=== PATIENT | male | born 1980 | race Two or more races ===

== ENCOUNTER 2017-09-16 11:55 | Emergency (ER) | payer SELFPAY ==
[~2017-09-16] VITALS: Ht 167.6 cm; Wt 74.8 kg
[2017-09-16] MEDS ORDERED: ACETAMINOPHEN ES 500 MG TABLET ONE (12:25)
--- NOTE | 2017-09-16 12:28 | NUR ---
PT TO [facility]
[2017-09-16] MEDS ORDERED: ACETAMINOPHEN 325 MG TABLET PO ONE (12:30)
--- NOTE | 2017-09-16 12:46 | NUR ---
PT SEEN & EVAL'D BY RD STOCKTON, PT BACK FROM CT. BB RA C/O neck, nasal,facial, LB pain WITH FACIAL LACS s/p fall from wooden plank approx 6 ft high, NO LOC PER PT. PT AAOX3, ABLE TO MOVE ALL EXT. DENIES DIZZINESS, N/V, CP, SOB, NAD NOTED @ THIS TIME. MEDICATED FOR PAIN & WILL CONT TO MONITOR.
[2017-09-16] MEDS ORDERED: TDAP [DIPH/PERTUSSIS/TET] 0.5 ML VIAL IM ONE ×2 (13:00→13:22)
[2017-09-16] MEDS: CEPHALEXIN MONOHYDRATE 500 MG CAPSULE PO ONE ×2 (13:29→13:33)
[2017-09-16 13:40] VITALS: BP 132/80
--- NOTE | 2017-09-16 13:41 | NUR ---
Patient discharged to home in stable condition. Written and verbal after care instructions given. Patient verbalizes understanding of instruction. PT STABLE DENIES DIZZINESS, GORDON, CP, SOB, N/V NAD NOTED & AMB WITH STEADY GAIT UPON LEAVING ED. PT REFUSED Rx, RD STOCKTON AWARE.
== END 2017-09-16 13:40 ==
LOC: ER 11:58
DX: S01.21XA Laceration without foreign body of nose, initial encounter (principal); M25.561 Pain in right knee; W01.0XXA Fall on same level from slipping, tripping and stumbling without subsequent striking against object, initial encounter; Y93.01 Activity, walking, marching and hiking; Y92.89 Other specified places as the place of occurrence of the external cause; Y99.0 Civilian activity done for income or pay
CPT/HCPCS: 70450; 70486; 72125; 73562; 90471; 90715; 99284; A4606; A6402; L0172; Z7610